=== PATIENT | male | born 1975 | race Caucasian/White ===

== ENCOUNTER 2019-08-15 07:52 | Emergency (ER) | payer SELFPAY ==
[~2019-08-15] VITALS: Ht 177.8 cm; Wt 97.5 kg
[2019-08-15] MEDS ORDERED: OMNIPAQUE ORAL SOLN 500ml 12mg/ml PO ONE (08:28)
[2019-08-15] MEDS ORDERED: ONDANSETRON HCL 4 MG/2 ML VIAL ONE (08:39)
[2019-08-15 08:40] LABS: Basophils # (auto) 0 uL; Basophils % (auto) 0.8 % (0.0-2.0); Eosinophils # (auto) 0.2 uL; Hematocrit 42.8 % (41.0-53.0); Hemoglobin 14.7 g/dL (13.5-17.5); Lymphocytes # (auto) 0.5 uL; Lymphocytes % (auto) 8.6 % (10.0-50.0); Mean Corpuscular Hemoglobin 30.6 pg (28.0-32.0); Mean Corpuscular Hgb Conc. 34.3 g/dL (32.0-36.0); Mean Corpuscular Volume 89.3 fL (80.0-100.0); Monocytes # (auto) 0.4 uL; Monocytes % (auto) 6.5 % (0.0-12.0); Neutrophils # (auto) 4.8 uL; Neutrophils % (auto) 81.1 % (37.0-80.0); Platelet Count (auto) 192 10^3/uL (140-450); Red Cell Distribution Width 14.2 % (11.8-14.3); White Blood Cell 5.9 10^3/uL (4.4-10.8)
[2019-08-15 08:45] LABS: Urine Bacteria NONE SEEN /hpf (None Seen); Urine Blood Negative /uL (Negative); Urine Specific Gravity 1.016 (1.001-1.035); Urine WBC <1 /hpf (0 - 3)
[2019-08-15] MEDS ORDERED: ONDANSETRON HCL 4 MG/2 ML VIAL IV ONE (08:45)
[2019-08-15] MEDS ORDERED: KETOROLAC TROMETH 30 MG/ML 1ML VIAL IV ONE ×2 (08:45)
[2019-08-15 09:02] LABS: Albumin 4.3 g/dL (3.4-5.0); Calcium 9.1 mg/dL (8.5-10.1); Potassium 4.2 mmol/L (3.5-5.1)
[2019-08-15 09:06] LABS: BUN/Creatinine Ratio 17.3; Bilirubin, Total 0.6 mg/dL (0.2-1.0); Total Protein 8.2 g/dL (6.4-8.2)
[2019-08-15] MEDS ORDERED: IOHEXOL 300 MG/ML 100ML BOTTLE IJ ONE (09:34)
[2019-08-15 10:03] VITALS: BP 123/77
== END 2019-08-15 11:15 | disposition home or self-care (01) ==
LOC: ER 07:56
DX: K40.90 Unilateral inguinal hernia, without obstruction or gangrene, not specified as recurrent (principal); F17.210 Nicotine dependence, cigarettes, uncomplicated
CPT/HCPCS: 36415; 74177; 76870; 80053; 81001; 85025; 87491; 87591; 96374; 96375; 99284; J1885; J2405; Q9967

== ENCOUNTER 2020-12-14 06:39 | Emergency (ER) | payer MEDICAID ==
[~2020-12-14] VITALS: Ht 180.3 cm; Wt 95.3 kg
[2020-12-14 06:48] VITALS: BP 129/94
[2020-12-14] MEDS ORDERED: ACETAMINOPHEN/CODEINE#3 (300/30mg) TAB PO ONE (08:15)
[2020-12-14] MEDS ORDERED: cefTRIAXone SOD 1,000 MG VL IM ONE (08:15)
[2020-12-14] MEDS ORDERED: LIDOCAINE 1% HCL (LOCAL ANESTH.) INJ 20ML MDV ONE (08:30)
[2020-12-14] MEDS ORDERED: LIDOCAINE 1% HCL (LOCAL ANESTH.) INJ 20ML MDV IJ ONE (08:30)
== END 2020-12-14 09:07 | disposition home or self-care (01) ==
LOC: ER 06:39
DX: K04.7 Periapical abscess without sinus (principal); F17.210 Nicotine dependence, cigarettes, uncomplicated; Z88.0 Allergy status to penicillin
CPT/HCPCS: 96372; 99283; J0696; J2001

== ENCOUNTER 2020-12-23 08:36 | Emergency (ER) | payer MEDICAID ==
[~2020-12-23] VITALS: Ht 177.8 cm; Wt 95.3 kg
[2020-12-23] MEDS ORDERED: SODIUM CHLORIDE 0.9% 1,000 ML IV ONE ×2 (09:00)
[2020-12-23] MEDS ORDERED: cefTRIAXone 1GM/50ML D5W 50 ML IV ONE (09:00)
[2020-12-23] MEDS ORDERED: CLINDAMYCIN 600MG IV 50 ML IV ONE (09:00)
[2020-12-23] MEDS ORDERED: MORPHINE SULFATE 4 MG/ML SYR/VIAL IV ONE ×2 (09:15→11:15)
[2020-12-23] MEDS ORDERED: ONDANSETRON HCL 4 MG/2 ML VIAL IV ONE ×2 (09:15→11:15)
[2020-12-23 09:30] LABS: Basophils # (auto) 0 10 ^3/uL (0-0.2); Basophils % (auto) 0.5 % (0.0-2.0); Eosinophils # (auto) 0.2 10 ^3/uL (0-0.8); Eosinophils % (auto) 2.9 % (0.0-7.0); Hematocrit 40.7 % (41.0-53.0); Hemoglobin 13.9 g/dL (13.5-17.5); Lymphocytes # (auto) 2.1 10 ^3/uL (0.4-5.4); Lymphocytes % (auto) 32.2 % (10.0-50.0); Mean Corpuscular Hemoglobin 29.7 pg (28.0-32.0); Mean Corpuscular Hgb Conc. 34.1 g/dL (32.0-36.0); Mean Corpuscular Volume 86.8 fL (80.0-100.0); Monocytes # (auto) 0.4 10 ^3/uL (0-1.3); Monocytes % (auto) 6.6 % (0.0-12.0); Neutrophils # (auto) 3.8 10 ^3/uL (1.6-8.6); Neutrophils % (auto) 57.8 % (37.0-80.0); Platelet Count (auto) 292 10^3/uL (140-450); Red Blood Cells 4.69 10^6/uL (4.5-5.90); Red Cell Distribution Width 14.3 % (11.8-14.3); White Blood Cell 6.5 10^3/uL (4.4-10.8)
[2020-12-23 09:44] LABS: Albumin 3.9 g/dL (3.4-5.0); Anion Gap 9 (5-15); Blood Urea Nitrogen 20 mg/dL (7-18); Calcium 8.8 mg/dL (8.5-10.1); Carbon Dioxide 21 mmol/L (21-32); Chloride 107 mmol/L (98-107); Glucose 116 mg/dL (74-106); Potassium 3.8 mmol/L (3.5-5.1); Sodium 137 mmol/L (136-145)
[2020-12-23 09:50] LABS: INR 0.97 (0.9-1.15)
[2020-12-23 09:52] LABS: Alanine Aminotransferase 31 U/L (16-61); Alkaline Phosphatase 66 U/L (45-117); Aspartate Aminotransferase 26 U/L (15-37); Bilirubin, Total 0.6 mg/dL (0.2-1.0); GFR African American 134 mL/min; GFR Non-African American 111 mL/min; Total Protein 7.5 g/dL (6.4-8.2)
[2020-12-23 11:00] VITALS: BP 129/87
[2020-12-23] MEDS ORDERED: LIDOCAINE 2% (LOCAL ANESTH.) PF 5ml SDV ONE (11:44)
== END 2020-12-23 11:55 | disposition home or self-care (01) ==
LOC: ER 08:36
DX: S51.812A Laceration without foreign body of left forearm, initial encounter (principal); R55 Syncope and collapse; F17.210 Nicotine dependence, cigarettes, uncomplicated; F10.20 Alcohol dependence, uncomplicated; Z88.0 Allergy status to penicillin; Y90.9 Presence of alcohol in blood, level not specified; W26.8XXA Contact with other sharp object(s), not elsewhere classified, initial encounter; Y93.89 Activity, other specified; Y92.89 Other specified places as the place of occurrence of the external cause; Y99.8 Other external cause status
CPT/HCPCS: 12004; 36415; 70450; 71045; 73090; 80053; 84484; 85025; 85610; 85730; 93005; 96365; 96366; 96368; 96375; 96376; 99285; J0696; J2001; J2270; J2405; J3490

== ENCOUNTER 2021-01-01 13:52 | Emergency (ER) | payer MEDICAID ==
[~2021-01-01] VITALS: Ht 177.8 cm; Wt 97.5 kg
[2021-01-01 15:07] VITALS: BP 116/74
== END 2021-01-01 15:12 | disposition home or self-care (01) ==
LOC: ER 13:52
DX: S51.812D Laceration without foreign body of left forearm, subsequent encounter (principal); F17.210 Nicotine dependence, cigarettes, uncomplicated; Z88.0 Allergy status to penicillin; X58.XXXD Exposure to other specified factors, subsequent encounter

== ENCOUNTER 2021-01-18 11:27 | Emergency (ER) | payer MEDICAID ==
[~2021-01-18] VITALS: Ht 177.8 cm; Wt 97.5 kg
[2021-01-18 14:28] VITALS: BP 134/97
== END 2021-01-18 14:50 | disposition home or self-care (01) ==
LOC: ER 11:27
DX: S63.602A Unspecified sprain of left thumb, initial encounter (principal); F98.5 Adult onset fluency disorder; R25.1 Tremor, unspecified; F17.210 Nicotine dependence, cigarettes, uncomplicated; Z88.0 Allergy status to penicillin; W11.XXXA Fall on and from ladder, initial encounter; Y93.89 Activity, other specified; Y92.89 Other specified places as the place of occurrence of the external cause; Y99.8 Other external cause status
CPT/HCPCS: 70450; 73140; 99284; J7030

== ENCOUNTER 2021-01-21 06:41 | Emergency (ER) | payer MEDICAID ==
[~2021-01-21] VITALS: Ht 177.8 cm; Wt 99.8 kg
[2021-01-21 06:41] VITALS: BP 130/84
[2021-01-21] MEDS ORDERED: LIDOCAINE 1% HCL (LOCAL ANESTH.) INJ 20ML MDV IJ ONE (07:30)
== END 2021-01-21 08:15 | disposition home or self-care (01) ==
LOC: ER 06:41
DX: L02.512 Cutaneous abscess of left hand (principal); F17.210 Nicotine dependence, cigarettes, uncomplicated; Z88.0 Allergy status to penicillin
CPT/HCPCS: 26010; 99283; J2001

== ENCOUNTER 2021-01-23 09:44 | Emergency (ER) | payer MEDICAID ==
[~2021-01-23] VITALS: Ht 177.8 cm; Wt 97.5 kg
[2021-01-23 10:48] VITALS: BP 110/80
== END 2021-01-23 18:45 | disposition home or self-care (01) ==
LOC: ER 09:44
DX: L02.512 Cutaneous abscess of left hand (principal); F17.210 Nicotine dependence, cigarettes, uncomplicated; Z88.0 Allergy status to penicillin

== ENCOUNTER 2021-02-17 07:48 | Emergency (ER) | payer MEDICAID ==
[~2021-02-17] VITALS: Ht 177.8 cm; Wt 97.5 kg
[2021-02-17 08:40] VITALS: BP 128/80
[2021-02-17] MEDS ORDERED: KETOROLAC TROMETH 60MG/2ML VIAL IM ONE (09:15)
== END 2021-02-17 09:46 | disposition home or self-care (01) ==
LOC: ER 07:48
DX: S83.91XA Sprain of unspecified site of right knee, initial encounter (principal); M17.11 Unilateral primary osteoarthritis, right knee; F17.210 Nicotine dependence, cigarettes, uncomplicated; Z88.0 Allergy status to penicillin; X50.1XXA Overexertion from prolonged static or awkward postures, initial encounter; Y93.89 Activity, other specified; Y92.89 Other specified places as the place of occurrence of the external cause; Y99.8 Other external cause status
CPT/HCPCS: 73562; 96372; 99283; J1885

== ENCOUNTER 2021-11-08 07:47 | Emergency (ER) | payer MEDICAID ==
[~2021-11-08] VITALS: Ht 177.8 cm; Wt 97.5 kg
[2021-11-08] MEDS: KETOROLAC TROMETH 60MG/2ML VIAL IM ONE ×2 (09:19)
[2021-11-08 09:26] LABS: Urine Bacteria NONE SEEN /hpf (None Seen); Urine Blood Negative /uL (Negative); Urine Mucus FEW (None Seen); Urine Specific Gravity 1.024 (1.001-1.035); Urine WBC <1 /hpf (0 - 3)
[2021-11-08 11:59] VITALS: BP 119/59
[2021-11-08] MEDS: MORPHINE SULFATE INJECTION 2 MG/ML SYRG IM ONE (11:59)
[2021-11-08] MEDS: ONDANSETRON ODT 4 MG TAB PO ONE (11:59)
[2021-11-08] MEDS ORDERED: ACE3T PO (12:10)
[2021-11-08] MEDS ORDERED: CYCL-837 PO (12:10)
== END 2021-11-08 12:15 | disposition home or self-care (01) ==
LOC: ER 07:47
DX: R10.9 Unspecified abdominal pain (principal); F12.10 Cannabis abuse, uncomplicated; Z88.0 Allergy status to penicillin
CPT/HCPCS: 72100; 74176; 81001; 96372; 99284; J1885; J2270; Q0162